=== PATIENT | male | born 1975 | race Caucasian/White ===

== ENCOUNTER 2018-03-14 22:08 | Emergency (ER) | payer MEDICAID ==
[2018-03-14 22:20] VITALS: TEMP 98.6
--- NOTE | 2018-03-14 22:29 | ED PDOC ---
HPI: General Adult Time Seen by Provider: 03/14/18 22:28 Chief Complaint (Nursing): Medical Clearance Chief Complaint (Provider): medical clearance History Per: Patient (42 y/o male here under arrest, h/o HTN denies any complaints. Denies any ingestion of etoh/drugs. Denies any traumatic injury. Takes daily antihypertensive unsure of name/amount.) Past Medical History Reviewed: Historical Data, Nursing Documentation, Vital Signs Vital Signs: Last Vital Signs Temp 98.6 F 03/14/18 22:17 Pulse 107 H 03/14/18 22:17 Resp 16 03/14/18 22:17 BP 126/88 03/14/18 22:17 Pulse Ox 97 03/14/18 22:17 - Medical History PMH: HTN, Schizophrenia - Family History Family History: States: No Known Family Hx - Allergies Allergies/Adverse Reactions: Allergies Allergy/AdvReac Type Severity Reaction Status Date / Time Penicillins Allergy RASH Verified 03/14/18 22:20 Review of Systems ROS Statement: Except As Marked, All Systems Reviewed And Found Negative Physical Exam - Reviewed Nursing Documentation Reviewed: Yes Vital Signs Reviewed: Yes - Physical Exam Appears: Positive for: Well, Non-toxic, No Acute Distress Head Exam: Positive for: ATRAUMATIC, NORMAL INSPECTION, NORMOCEPHALIC Skin: Positive for: Normal Color, Warm, DRY Eye Exam: Positive for: EOMI, Normal appearance, PERRL ENT: Positive for: Normal ENT Inspection Neck: Positive for: Normal, Painless ROM Cardiovascular/Chest: Positive for: Regular Rate, Rhythm Respiratory: Positive for: CNT, Normal Breath Sounds Gastrointestinal/Abdominal: Positive for: Normal Exam, Soft Back: Positive for: Normal Inspection Extremity: Positive for: Normal ROM Neurologic/Psych: Positive for: Alert, Oriented - ECG O2 Sat by Pulse Oximetry: 97 Disposition - Clinical Impression Clinical Impression: Medical clearance for incarceration - Patient ED Disposition Is Patient to be Admitted: No - Disposition Disposition: Routine/Home Disposition Time: 22:29 Condition: FAIR Additional Instructions: PATIENT IS MEDICALLY AND PSYCHIATRICALLY CLEARED FOR INCARCERATION
[2018-03-14 22:53] VITALS: BP 124/86; PULSE 92; RESP 18; O2SAT 98
== END 2018-03-14 22:52 ==
LOC: H.ER 22:08
DX: F20.9 Schizophrenia, unspecified; I10 Essential (primary) hypertension; Z88.0 Allergy status to penicillin